=== PATIENT | male | born 1945 | race Caucasian/White ===

== ENCOUNTER 2018-10-17 21:56 | Observation (INO) | payer MEDICAID, OTHER ==
[2018-10-17 22:23] LABS: ADD MAN DIFF? NO
[2018-10-17] MEDS: ASPIRIN 81 MG TAB PO (22:25)
[2018-10-17 22:26] LABS: WHITE BLOOD COUNT 6.8 10^3/ul (4.8-10.8)
[2018-10-17 22:26] LABS: BASOPHILS % 0.6 % (0.0-2.0); EOSINOPHILS % 0.3 % (0.0-7.0); HEMATOCRIT 37.8 % (42.0-52.0); HEMOGLOBIN 13.1 g/dl (14.0-18.0); LYMPHOCYTES # 1.8 10^3/ul (0.8-2.9); LYMPHOCYTES % 26.8 % (15.0-51.0); MEAN CORPUSCULAR HEMOGLOBIN 33.8 pg (29.0-33.0); MEAN CORPUSCULAR HGB CONC 34.7 g/dl (32.0-37.0); MEAN CORPUSCULAR VOLUME 97.4 fl (82.0-101.0); MEAN PLATELET VOLUME 8.7 fl (7.4-10.4); MONOCYTE # 0.6 10^3/ul (0.3-0.9); MONOCYTES % 8.9 % (0.0-11.0); NEUTROPHIL # 4.3 10^3/ul (1.6-7.5); NEUTROPHILS % 63.1 % (39.0-77.0); PLATELET COUNT 177 10^3/UL (140-415); RED BLOOD COUNT 3.88 10^6/ul (4.70-6.10); RED CELL DISTRIBUTION WIDTH 14.6 % (11.5-14.5)
[2018-10-17 22:46] LABS: ANION GAP 11 (5-13); BLOOD UREA NITROGEN 12 mg/dl (7-20); CALCIUM 8.4 mg/dl (8.4-10.2); CARBON DIOXIDE 23 mmol/L (21-31); CHLORIDE 103 mmol/L (97-110); CREATININE 0.82 mg/dl (0.61-1.24); GLUCOSE 142 mg/dl (70-220); POTASSIUM 3.9 mmol/L (3.5-5.1); SODIUM 137 mmol/L (135-144)
[2018-10-17 22:57] LABS: TROPONIN-I < 0.012 ng/ml (0.000-0.120)
[2018-10-18] MEDS ORDERED: NACL 0.9% 3 ML SYG IV
[2018-10-18] MEDS ORDERED: ACETAMINOPHEN 325 MG TAB PO ×2
[2018-10-18] MEDS ORDERED: morphine 2 MG INJ IV
[2018-10-18] MEDS ORDERED: ONDANSETRON 4 MG INJ IV ×2
[2018-10-18] MEDS ORDERED: DOCUSATE SODIUM 100 MG CAP PO
[2018-10-18] MEDS ORDERED: BISACODYL (EC) 5 MG TAB PO
[2018-10-18] MEDS ORDERED: NITROGLYCERIN (SL) 0.4 MG TAB SL
[2018-10-18] MEDS ORDERED: GLUCAGON 1 MG INJ IM (01:00)
[2018-10-18] MEDS ORDERED: DEXTROSE 50% 50 ML SYRINGE IV ×2 (01:00)
[2018-10-18] MEDS ORDERED: GLUCOSE GEL 15 GRAM TUBE PO ×2 (01:00)
[2018-10-18] MEDS ORDERED: GLUCOSE GEL 15 GRAM TUBE BUCCAL (01:00)
[2018-10-18] MEDS: LISINOPRIL 10 MG TAB PO ×3 (02:19→11:57)
[2018-10-18] MEDS: ACCU-CHEK XX (02:24)
[2018-10-18] MEDS: HEPARIN 5,000 UNIT/1 ML VIAL SC ×4 (02:24→22:16)
[2018-10-18] MEDS ORDERED: LORAZEPAM 2 MG INJ IV (04:30)
[2018-10-18] MEDS: MULTIVITAMINS 10 ML, THIAMINE 100 MG, FOLIC ACID 1 MG in SOD CHLORIDE 0.9% 1,000 ML IVPB (05:48)
[2018-10-18 06:48] LABS: ADD MAN DIFF? NO
[2018-10-18 06:52] LABS: BASOPHILS % 0.8 % (0.0-2.0); EOSINOPHILS % 0.4 % (0.0-7.0); HEMATOCRIT 36.5 % (42.0-52.0); HEMOGLOBIN 12.7 g/dl (14.0-18.0); LYMPHOCYTES # 1.5 10^3/ul (0.8-2.9); MEAN CORPUSCULAR HEMOGLOBIN 33.1 pg (29.0-33.0); MEAN CORPUSCULAR HGB CONC 34.8 g/dl (32.0-37.0); MEAN CORPUSCULAR VOLUME 95.1 fl (82.0-101.0); MEAN PLATELET VOLUME 9.4 fl (7.4-10.4); MONOCYTE # 0.5 10^3/ul (0.3-0.9); MONOCYTES % 10.8 % (0.0-11.0); NEUTROPHIL # 2.7 10^3/ul (1.6-7.5); NEUTROPHILS % 56.6 % (39.0-77.0); PLATELET COUNT 161 10^3/UL (140-415); RED BLOOD COUNT 3.84 10^6/ul (4.70-6.10); RED CELL DISTRIBUTION WIDTH 14.4 % (11.5-14.5)
[2018-10-18 06:52] LABS: WHITE BLOOD COUNT 4.8 10^3/ul (4.8-10.8)
[2018-10-18 07:11] LABS: HEMOGLOBIN A1C 5.9 % (0-5.9)
[2018-10-18 07:13] LABS: CREATINE KINASE 223 IU/L (23-200)
[2018-10-18 07:15] LABS: ALANINE AMINOTRANSFERASE 36 IU/L (13-69); ALBUMIN 4.1 g/dl (3.3-4.9); ALBUMIN/GLOBULIN RATIO 1.28; ALKALINE PHOSPHATASE 86 IU/L (42-121); ANION GAP 11 (5-13); ASPARTATE AMINO TRANSFERASE 55 IU/L (15-46); BILIRUBIN,INDIRECT 0.6 mg/dl (0-1.1); BILIRUBIN,TOTAL 0.6 mg/dl (0.2-1.3); BLOOD UREA NITROGEN 8 mg/dl (7-20); CALCIUM 8.6 mg/dl (8.4-10.2); CARBON DIOXIDE 24 mmol/L (21-31); CHLORIDE 105 mmol/L (97-110); CHOLESTEROL 143 mg/dl (100-200); CREATININE 0.71 mg/dl (0.61-1.24); GLUCOSE 140 mg/dl (70-220); HDL CHOLESTEROL 71 mg/dl (31-75); LDL CHOLESTEROL,CALCULATED 29 mg/dl; MAGNESIUM 1.5 mg/dl (1.7-2.5); POTASSIUM 3.4 mmol/L (3.5-5.1); SODIUM 140 mmol/L (135-144); TOTAL PROTEIN 7.3 g/dl (6.1-8.1); TRIGLYCERIDES 215 mg/dl (0-149)
[2018-10-18 07:23] LABS: CK INDEX 1.7; TROPONIN-I < 0.012 ng/ml (0.000-0.120)
[2018-10-18 07:28] LABS: CK-MB 3.72 ng/ml (0.0-2.4)
[2018-10-18] MEDS: ASPIRIN 81 MG TAB PO (08:18)
[2018-10-18] MEDS: INSULIN ASPART [NOVOLOG] 3 ML PEN SC ×4 (08:18→20:48)
[2018-10-18 10:46] LABS: CREATINE KINASE 188 IU/L (23-200)
[2018-10-18 10:57] LABS: CK INDEX 1.7; TROPONIN-I < 0.012 ng/ml (0.000-0.120)
[2018-10-18 11:00] LABS: CK-MB 3.24 ng/ml (0.0-2.4)
[2018-10-18] MEDS: MAGNESIUM SULFATE 2 GM/50 ML 50 ML IVPB (12:07)
[2018-10-18] MEDS: POTASSIUM CHLORIDE (SR) 20 MEQ TAB PO (12:07)
[2018-10-18] MEDS: METOPROLOL 25 MG TAB PO (12:35)
[2018-10-18] MEDS: METOPROLOL (XL) 50 MG TAB PO ×2 (13:00→20:48)
[2018-10-18] MEDS: REGADENOSON 0.4 MG/5 ML SYG (14:16)
[2018-10-18] MEDS: ENALAPRILAT 1.25 MG INJ IV (17:43)
[2018-10-19] MEDS: ACCU-CHEK XX (02:46)
[2018-10-19 03:12] LABS: FREE T4 (FREE THYROXINE) 1.65 ng/dl (0.78-2.44)
[2018-10-19] MEDS: HEPARIN 5,000 UNIT/1 ML VIAL SC ×2 (06:10→14:00)
[2018-10-19 06:58] LABS: ANION GAP 9 (5-13); BLOOD UREA NITROGEN 8 mg/dl (7-20); CARBON DIOXIDE 22 mmol/L (21-31); CHLORIDE 110 mmol/L (97-110); CREATININE 0.76 mg/dl (0.61-1.24); GLUCOSE 139 mg/dl (70-220); POTASSIUM 4.2 mmol/L (3.5-5.1); SODIUM 141 mmol/L (135-144)
[2018-10-19] MEDS: INSULIN ASPART [NOVOLOG] 3 ML PEN SC ×2 (07:55→12:35)
[2018-10-19] MEDS: ASPIRIN 81 MG TAB PO (08:05)
[2018-10-19] MEDS: LISINOPRIL 20 MG TAB PO (08:05)
[2018-10-19] MEDS: FOLIC ACID 1 MG TAB PO (08:05)
[2018-10-19] MEDS: THIAMINE 100 MG TAB PO (08:05)
[2018-10-19] MEDS: MULTIVITAMINS THERAPEUTIC TAB PO (08:05)
[2018-10-19 14:57] LABS: CREATININE, RANDOM URINE 37 mg/dL (20-320); MICROALBUMIN 0.5 mg/dL; MICROALBUMIN/CREATININE RATIO 14 (<30)
== END 2018-10-19 15:05 | disposition home or self-care (01) ==
LOC: TEL 23:56 → E/R 21:56 → TEL 10-18 18:59
DX: R07.9 Chest pain, unspecified (principal); I10 Essential (primary) hypertension; E11.9 Type 2 diabetes mellitus without complications; F10.10 Alcohol abuse, uncomplicated; Z86.718 Personal history of other venous thrombosis and embolism; D64.9 Anemia, unspecified; E03.9 Hypothyroidism, unspecified
CPT/HCPCS: 36415; 71045; 78452; 80048; 80053; 80061; 82043; 82550; 82553; 82962; 83036; 83735; 84439; 84443; 84484; 85025; 93005; 93017; 93306; 99285-25; G0378